=== PATIENT | female | born 2000 | race Caucasian/White ===

== ENCOUNTER 2024-03-30 15:12 | Emergency (ER) | payer BC, OTHER ==
[2024-03-30 15:32] VITALS: BP 113/73; PULSE 90; RESP 18; TEMP 97.6; BMI 22.8
[2024-03-30] MEDS: SODIUM CHLORIDE 0.9% 500 ML INFUS.BAG IV ONE (17:11)
[2024-03-30 17:22] LABS: URINE APPEARANCE CLEAR; URINE BILIRUBIN NEGATIVE (NEGATIVE); URINE COLOR YELLOW; URINE GLUCOSE (UA) NEGATIVE (NEGATIVE); URINE KETONE NEGATIVE (NEGATIVE); URINE LEUK ESTERASE NEGATIVE (NEGATIVE); URINE NITRITE NEGATIVE (NEGATIVE); URINE PROTEIN NEGATIVE (NEGATIVE); URINE UROBILINOGEN 0.2 mg/dL (0.2-1.0)
[2024-03-30 17:22] LABS: BASO % 0.5 % (0-2.0); EOS % 1.4 % (0-4.5); HEMATOCRIT 39.2 % (32.4-45.2); HEMOGLOBIN 13.1 GM/dL (10.7-15.3); LYMPH % 30.3 % (8-40); MCH 29.8 pg (25.7-33.7); MCHC 33.5 g/dl (32.0-36.0); MEAN CELL VOLUME 88.9 fl (80-96); MEAN PLT VOLUME 7.9 fl (7.5-11.1); MONO % 5.2 % (3.8-10.2); NEUT % 62.6 % (42.8-82.8); PLATELET COUNT 258 10^3/uL (134-434); RBC 4.41 M/mm3 (3.60-5.2); RDW 12.9 % (11.6-15.6); WHITE BLOOD COUNT 5.6 K/mm3 (4.0-10.0)
[2024-03-30 17:25] LABS: HCG,QUALITATIVE URINE Negative
[2024-03-30 17:29] LABS: INR 0.97 (0.83-1.09)
[2024-03-30 17:31] LABS: ACTIVATED PTT 35.9 SECONDS (25.2-36.5)
[2024-03-30 17:46] LABS: POTASSIUM 4.2 mmol/L (3.5-5.1)
[2024-03-30 17:48] LABS: CALCIUM 9.4 mg/dL (8.5-10.1)
[2024-03-30 17:49] LABS: ALBUMIN 4.4 g/dl (3.4-5.0); BLOOD UREA NITROGEN 6.9 mg/dL (7-18)
[2024-03-30 17:52] LABS: CREATININE 0.7 mg/dL (0.55-1.3)
[2024-03-30 17:53] LABS: BILIRUBIN,TOTAL 0.3 mg/dL (0.2-1); TOT PROT 7.8 g/dl (6.4-8.2)
== END 2024-03-30 19:19 | disposition home or self-care (01) ==
LOC: JER 15:12
DX: R26.89 Other abnormalities of gait and mobility (principal); R42 Dizziness and giddiness
CPT/HCPCS: 36415; 70544-TC; 70547-TC; 70551-TC; 80053; 81003; 84443; 84703; 85025; 85610; 85730; 87086; 93005; 93010; 99284-25